=== PATIENT | female | born 1980 | race Caucasian/White ===

== ENCOUNTER → 2016-09-11 | Outpatient (CLI) | payer OTHER ==
--- NOTE | 2016-09-11 08:38 | Diagnostic Imaging Report ---
PROCEDURE: US Gallbladder. TECHNIQUE: Multiple real-time grayscale images were obtained over the right upper quadrant in various projections. INDICATION: Right upper quadrant pain. FINDINGS: The visualized portions of the pancreas appear unremarkable. The liver is fairly homogeneous with a focal simple cyst in the posterior/superior aspect of the right hepatic lobe measuring 1.8 x 1.7 x 0.8 cm. No solid mass. Hepatopetal flow in the portal vein is seen. The gallbladder demonstrates no stones or wall thickening. The CBD is 4 mm in caliber. The right kidney is 11.2 cm in length. No hydronephrosis. No fluid collection in the upper right abdomen. The sonographic Nicole sign is reportedly negative. IMPRESSION: No significant abnormality. Dictated by: Dictated on workstation # [id number]
== END ==
LOC: RAD 08:04
PROVIDERS: ATTEND Surgery
DX: R10.11 Right upper quadrant pain (principal)
CPT/HCPCS: 76705

== ENCOUNTER → 2016-09-19 | Outpatient (CLI) | payer OTHER ==
[~2016-09-19] MED LIST: CATHETER FLUSH 10 ML SYR IV PRN
--- NOTE | 2016-09-19 14:36 | Diagnostic Imaging Report ---
EXAMINATION: HIDA with EF measurements Indication: Abdominal pain TECHNIQUE: After the intravenous administration of 5.1 mCi of Tc 99m Choletec, imaging over the abdomen was obtained. This was followed by administration of Ensure orally to stimulate intrinsic CCK secretion, followed by continued imaging with ejection fraction measured. FINDINGS: There is homogeneous uptake in the liver with prompt bile duct and gallbladder filling seen. Bowel activity is seen at 70 minutes. Based on further imaging and gallbladder area of interest activity measurements after the administration of Ensure, the gallbladder ejection fraction is estimated at 3%. IMPRESSION: 1. Normal hepatobiliary uptake and Gallbladder filling. 2. Biliary dyskinesia. Very poor gallbladder ejection fraction. Dictated by: Dictated on workstation # [id number]
== END ==
LOC: EDUNIT# 09-05 13:41 → CARD 11:58
PROVIDERS: ATTEND Surgery
DX: K82.8 Other specified diseases of gallbladder (principal)
CPT/HCPCS: 78227

== ENCOUNTER 2016-09-25 13:30 | Outpatient (CLI) | payer OTHER ==
[~2016-09-25] VITALS: Ht 160 cm; Wt 91.2 kg
[2016-09-25] MEDS ORDERED: OMEP20TA33 PO (13:39)
[2016-09-25] MEDS ORDERED: OMG1KC PO (13:39)
[2016-09-25] MEDS ORDERED: MULT1CAP27 PO (13:39)
[2016-09-25 13:43] VITALS: BP 125/78
[2016-09-25 14:02] LABS: BASOPHILS % (AUTO) 0 % (0-10); EOSINOPHILS # (AUTO) 0.1 10^3/uL (0.0-0.3); EOSINOPHILS % (AUTO) 1 % (0-10); LYMPHOCYTES # (AUTO) 2.5 X 10^3 (1.0-4.0); LYMPHOCYTES % (AUTO) 26 % (12-44); MEAN CORPUSCULAR HEMOGLOBIN 27 PG (25-34); MEAN CORPUSCULAR HGB CONC 34 G/DL (32-36); MEAN CORPUSCULAR VOLUME 82 FL (80-99); MEAN PLATELET VOLUME 10.6 FL (7.4-10.4); MONOCYTES # (AUTO) 0.5 X 10^3 (0.0-1.0); MONOCYTES % (AUTO) 6 % (0-12); NEUTROPHILS # (AUTO) 6.3 X 10^3 (1.8-7.8); NEUTROPHILS % (AUTO) 67 % (42-75); PLATELET COUNT 246 10^3/uL (130-400); RED BLOOD COUNT 4.74 10^6/uL (4.35-5.85); RED CELL DISTRIBUTION WIDTH 13.1 % (10.0-14.5); WHITE BLOOD COUNT 9.4 10^3/uL (4.3-11.0)
== END 2016-09-25 14:14 | disposition home or self-care (01) ==
LOC: PREOP 13:30
PROVIDERS: ATTEND Surgery
DX: Z01.812 Encounter for preprocedural laboratory examination (principal); Z11.2 Encounter for screening for other bacterial diseases; K82.8 Other specified diseases of gallbladder
CPT/HCPCS: 36415; 84703; 85025; 87081

== ENCOUNTER 2016-09-27 07:39 | Day surgery (SDC) | payer OTHER ==
[~2016-09-27] VITALS: Ht 160 cm; Wt 91.2 kg
[~2016-09-27 07:39] MED LIST changes: -CATHETER FLUSH 10 ML SYR IV PRN; +MULT1CAP27 PO; +OMEP20TA33 PO; +OMG1KC PO
[2016-09-27] MEDS ORDERED: ATRACURIUM 50 MG/5 ML (TRACRIUM) IV ONE (08:04)
[2016-09-27] MEDS ORDERED: DEXAMETHASONE PF 10 MG/ML (DECADRON) VIAL ONE ×2 (08:06→08:07)
[2016-09-27] MEDS ORDERED: LIDOCAINE PF 2% 5 ML (XYLOCAINE) VIAL ONE (08:07)
[2016-09-27] MEDS ORDERED: HURRICAINE EXT TUBE (BENZOCAINE) ONE (08:07)
[2016-09-27] MEDS ORDERED: LACTATED RINGERS 1,000 ML IV ONE (08:07)
[2016-09-27] MEDS ORDERED: SEVOFLURANE (ULTANE) 15 ML INHAL SOLN ONE ×4 (08:07→10:10)
[2016-09-27] MEDS ORDERED: proPOfol 200 MG/20 ML (DIPRIVAN) VIAL IV ONE (08:07)
[2016-09-27] MEDS ORDERED: fentaNYL INJECTION 100 MCG/2 ML AMP ONE (08:08)
[2016-09-27] MEDS ORDERED: MIDAZOLAM 2 MG/2 ML (VERSED) VIAL ONE (08:08)
[2016-09-27] MEDS ORDERED: ceFAZolin 2 GM/NS 50 ML IV ONE (08:15)
[2016-09-27 08:30] VITALS: BP 111/72
[2016-09-27] MEDS: LACTATED RINGERS 1,000 ML IV PRN ×2 (08:30→10:44)
--- NOTE | 2016-09-27 09:10 | Progress Note-Pre Operative ---
Pre-Operative Progress Note H&P Reviewed The H&P was reviewed, patient examined and no changes noted. Time Seen by Provider: 09:01 Date H&P Reviewed: Sep 27, 2016 Time H&P Reviewed: 09:01 Pre-Operative Diagnosis: Biliary Dyskinesia JODIE MULLINS DO Sep 27, 2016 09:10
[2016-09-27] MEDS ORDERED: BUP/EPI 0.5% 1:200,000 (SENSORCAINE) 30 ML VIAL ONE (09:14)
[2016-09-27] MEDS ORDERED: ESMOLOL 100 MG/10 ML (BREVIBLOC) VIAL ONE (09:24)
--- NOTE | 2016-09-27 10:08 | Progress Note-Post Operative ---
Post-Operative Progess Note Surgeon (s)/Supervisor Show Operations (s) Surgeon JODIE MULLINS DO Supervisor Show Operations: Brie Pre-Operative Diagnosis Biliary Dyskinesia Post-Operative Diagnosis Same Procedure & Operative Findings Date of Procedure 09/27/16 Procedure Performed/Findings Lap Tess with IOC Anesthesia Type GET Estimated Blood Loss Estimated blood loss (mL): scant Specimens/Packing Specimens Removed GB and contents Liver bx Packing: none JODIE MULLINS DO Sep 27, 2016 10:08
[2016-09-27] MEDS ORDERED: HYDR-3820 PO (10:09)
[2016-09-27] MEDS ORDERED: NEOSTIGMINE (BLOXIVERZ ) 1 MG/1ML 10 ML VIAL ONE (10:11)
[2016-09-27] MEDS ORDERED: GLYCOPYRROLATE 0.2 MG/ML (ROBINUL) 2 ML VIAL ONE (10:11)
--- NOTE | 2016-09-27 10:11 | Discharge Inst-Surgical ---
Discharge Inst-Surgical Depart Medication/Instructions New, Converted or Re-Newed RX: RX Given to Pt/Family Patient Instructions Follow up Appt: Make appointment for 1 week, . Instructions: No lifting greater than 10 pounds. No strenuous activity. May shower in 24 hours, no tub bath or soaking. Use incentive spirometer at home as directed. No Smoking Skin/Wound Care: May remove band-aids in am 6/17. Dermabond will fall off on its own. Symptoms to Report: Appetite Changes, Extremity Discoloration, Numbness/Tingling, Swelling Increased , Bleeding Excessive, Eyesight Changes, Pain Increased, Urine Color Change, Constipation(Persistent), Fever over 101 degree F, Pain/Pressure in chest, Urinating Difficulty, Cough Up/Vomit Blood, Heart Beat Irreg/Pounding, Pain/ Pressure in jaw, Vaginal Bleeding Increase, Cramps in feet or legs, Lightheadedness, Pain/Pressure in shoulder, Diarrhea(Persistent), Memory Changes Suddenly, Questions/Concerns, Weight gain consecutive days, Dizziness/ Fainting, Nausea/Vomiting, Shortness of Breath, Weight gain over 2 pounds. If eyes or skin turn yellow notify physician. If questions or concerns contact your physician Or seek help at emergency department. Activity Activity as Tolerated: Yes Activity Instructions: Avoid Stress to Incision Driving Instructions: No Driving/Refer to Dr. Ordaz Discharge Diet: Avoid Fatty Foods, Low Fat/Low Cholesterol Diet After 24 Hours: Clear Liquid if Nauseous If Any Problems/Questions/Issu: Contact Your Physician, Go to Emergency Room Skin/Wound Care Infection Signs and Symptoms: Increased Redness, Foul Odor of Wound, Increased Drainage, Skin Itchy or Has a Rash, Increased Swelling, Temperature Above 101 F Wound Care Comment: Heating pad to shoulder or neck tonight for pain. Bathing Instructions: Shower Stitches/Chloe/Dermabond Dis: Dermabond Ice Pack: Ice On and Off Site (as needed) JODIE MULLINS DO Sep 27, 2016 10:11
[2016-09-27] MEDS: fentaNYL INJECTION 100 MCG/2 ML AMP IVP PRN ×3 (10:43→11:53)
--- NOTE | 2016-09-27 10:51 | Diagnostic Imaging Report ---
EXAMINATION: Fluoroscopy. INDICATION: Abdominal pain. Fluoroscopic assistance was provided for Dr. Carver during this laparoscopic cholecystectomy procedure. One minute, 5 seconds of fluoroscopy time was utilized. FINDINGS: A single spot film of the abdomen was obtained. There are laparoscopic devices in place. The cine images also reveal that there has been opacification of the common bile duct via a cystic duct catheter. The common bile duct is slightly dilated but there is no evidence for a retained calculus. Contrast is seen extending into the small bowel and into the proximal portion of the main pancreatic duct. IMPRESSION: The common bile duct is slightly dilated but there is no evidence for a retained calculus. Dictated by: Dictated on workstation # [id number]
[2016-09-27 11:15] VITALS: BP 147/84
[2016-09-27] MEDS ORDERED: HYDROcodone/APAP 10 MG/325 MG (LORTAB) TAB PO ONE (11:40)
[2016-09-27] MEDS ORDERED: ONDANSETRON 4 MG/2 ML (SDV) Z0FRAN ONE (11:42)
[2016-09-27 11:45] VITALS: BP 133/84
[2016-09-27] MEDS ORDERED: fentaNYL INJECTION 100 MCG/2 ML AMP IVP ONE (12:00)
[2016-09-27] MEDS ORDERED: ONDANSETRON 4 MG/2 ML (SDV) Z0FRAN IVP ONE (12:00)
[2016-09-27 12:15] VITALS: BP 131/82
--- NOTE | 2016-09-27 12:59 | OPERATIVE REPORT ---
DATE OF SERVICE: 09/27/2016 PREOPERATIVE DIAGNOSIS: Biliary dyskinesia. POSTOPERATIVE DIAGNOSIS: Biliary dyskinesia. PROCEDURE: Laparoscopic cholecystectomy with intraoperative cholangiogram. SURGEON: Hansel Carver DO SCREEN MAKING TECHNICIAN: Dr. Baird. ANESTHESIA: General endotracheal tube. SPECIMEN: 1. Gallbladder and contents. 2. Specimen from liver. BLOOD LOSS: Scant. FLUIDS: Per anesthesia. POSTOPERATIVE CONDITION: Stable. INDICATION FOR PROCEDURE: The patient is a 36-year-old female who has been having some abdominal pain, was associated with fried fatty foods but then became all foods. An ultrasound showed no stones but she had a HIDA scan performed which showed ejection fraction of 3%. This is a biliary dyskinesia. FINDINGS: The patient actually had some adhesion to the gallbladder. This is usually indicated of previous gallbladder attacks and she had an odd looking bed of liver so a small portion was taken off and sent to pathology. PROCEDURE IN DETAIL: After informed consent was obtained, the patient was brought to the operating room and placed on the table in supine position. She was sterilely prepped and draped in normal fashion. Local lidocaine was used to infiltrate the skin above the umbilicus. I then made an incision with a #11 blade and carried down through the skin into the subcutaneous tissue, then debrided down to the subcutaneous tissue with Bovie electrocautery down to the fascia. The fascia was incised with Bovie electrocautery. I then bluntly entered the abdomen, swept the finger around, placed an 0 Vicryl doxiim-wa-jdxzf suture and then placed an 11 mm trocar port under direct visualization. I created a pneumoperitoneum and then placed two more ports in a normal fascia using local lidocaine, an 11 blade for a stab incision and the VersaStep system, all done under direct visualization, one in the subxiphoid and two in the right upper quadrant. The patient was then placed reverse Trendelenburg and rotated to the left. I was able to grasp gallbladder and fundus and taken in inferior direction, there were adhesions in the gallbladder. This is usually indicative of previous gallbladder attacks. These were carefully taken down with Bovie electrocautery as well as blunt dissection. Then, I was able to grasp down to Stevenson's pouch and pull in the inferolateral direction and started dissecting out the cystic duct and cystic artery. I was able to get around the cystic duct and cystic artery. I placed 1 clip distally in the cystic duct and 1 distally and one proximally in the cystic artery. I cut the cystic duct chcf through with Metzenbaum scissors and placed a cholangiogram catheter and shot a cholangiogram. I had a very tough time getting the dye to go up into the common duct. It went easily down the cystic duct into the common bile duct and down the small intestine and next started also delineating the pancreatic duct, but I had to place the patient a little bit Trendelenburg to get it to go up the common hepatic duct. It did start going up the common hepatic duct. At this point I removed cholangiogram catheter and placed 2 clips proximally on the cystic duct and then cut the cystic duct and cystic artery with Metzenbaum scissors, and then started removing the gallbladder from the bed of the liver with the L hook cautery. Once it was completely removed, it appeared to be almost rough edges. It was not a flat, normal appearing liver bed, so removed one of these pieces and sent it to pathology. There was bleeding in the bed of liver that was contained with Bovie electrocautery and then placed a bag in the abdomen, placed the gallbladder in the bag and then removed this through a supraumbilical port. Copiously irrigated with normal saline and suctioned this out and then removed all ports under direct visualization, allowed pneumoperitoneum to escape as well as suctioned it out. I then closed the supraumbilical incision, closed the fascia with the 0 Vicryl suture previously placed. We copiously irrigated all incisions with normal saline and then closed the 3 small 5 mm incisions with single interrupted 4-0 undyed Monocryl subcuticular stitches. The supraumbilical incision was closed with 3 interrupted 4-0 undyed Monocryl subcuticular stitches. The other areas were cleaned and dried and Dermabond was placed. The patient was then transferred to recovery room in stable condition. Sponge, instrument and needle counts were correct at the end of the case. Dr. Baird assisted in this case by making incisions and introducing trocars, holding the gallbladder, identifying anatomy and then closing the incisions. Job ID: [id number] DocumentID: [id number] Dictated Date: 09/27/2016 10:15:14 Yarn Salvager Date: 09/27/2016 12:10:24 Dictated By: DO SAMANTHA WOODS
[2016-09-27 14:20] VITALS: BP 131/82
[2016-09-27 14:35] VITALS: BP 131/82
== END 2016-09-27 14:35 | disposition home or self-care (01) ==
LOC: SDC 07:39
PROVIDERS: ATTEND Surgery
DX: K81.1 Chronic cholecystitis (principal); K76.9 Liver disease, unspecified; K21.9 Gastro-esophageal reflux disease without esophagitis
CPT/HCPCS: 94664

== ENCOUNTER 2017-03-28 09:11 | Outpatient (CLI) | payer OTHER ==
[~2017-03-28] VITALS: Ht 160 cm; Wt 92.3 kg
[~2017-03-28 09:11] MED LIST changes: +HYDR-3820 PO
[2017-03-28] MEDS ORDERED: BCP PO (09:20)
[2017-03-28] MEDS ORDERED: METH-287 PO (09:20)
[2017-03-28 09:23] VITALS: BP 132/74
[2017-03-28 09:49] LABS: BASOPHILS % (AUTO) 0 % (0-10); EOSINOPHILS # (AUTO) 0.1 10^3/uL (0.0-0.3); EOSINOPHILS % (AUTO) 1 % (0-10); LYMPHOCYTES # (AUTO) 2.4 X 10^3 (1.0-4.0); LYMPHOCYTES % (AUTO) 23 % (12-44); MEAN CORPUSCULAR HEMOGLOBIN 27 PG (25-34); MEAN CORPUSCULAR HGB CONC 33 G/DL (32-36); MEAN CORPUSCULAR VOLUME 81 FL (80-99); MONOCYTES # (AUTO) 0.6 X 10^3 (0.0-1.0); MONOCYTES % (AUTO) 6 % (0-12); NEUTROPHILS # (AUTO) 7.2 X 10^3 (1.8-7.8); NEUTROPHILS % (AUTO) 70 % (42-75); PLATELET COUNT 299 10^3/uL (130-400); RED BLOOD COUNT 4.79 10^6/uL (4.35-5.85); RED CELL DISTRIBUTION WIDTH 13.2 % (10.0-14.5); WHITE BLOOD COUNT 10.3 10^3/uL (4.3-11.0)
== END 2017-03-28 12:00 | disposition home or self-care (01) ==
LOC: PREOP 09:11
PROVIDERS: ATTEND Obstetrics & Gynecology
DX: Z01.812 Encounter for preprocedural laboratory examination (principal); Z11.2 Encounter for screening for other bacterial diseases; R10.2 Pelvic and perineal pain; N93.8 Other specified abnormal uterine and vaginal bleeding; N80.0 Endometriosis of uterus; D64.9 Anemia, unspecified
CPT/HCPCS: 36415; 85025; 86850; 86900; 86901; 87081

== ENCOUNTER 2017-04-04 08:25 | Day surgery (SDC) | payer OTHER ==
[~2017-04-04] VITALS: Ht 160 cm; Wt 92.3 kg
[~2017-04-04 08:25] MED LIST changes: +BCP PO; +METH-287 PO
[2017-04-04 08:35] VITALS: BP 106/78
[2017-04-04] MEDS: LACTATED RINGERS 1,000 ML IV PRN ×2 (08:55→11:15)
[2017-04-04] MEDS ORDERED: ceFAZolin 1,000 MG (ANCEF) VIAL ONE (09:16)
[2017-04-04] MEDS ORDERED: NS (IVPB) 50 ML ONE (09:17)
[2017-04-04] MEDS ORDERED: BUP/EPI 0.5% 1:200,000 (MARCAINE) 10ML VIAL IJ ONE (09:23)
[2017-04-04] MEDS ORDERED: ceFAZolin 2 GM/50 ML NS 50 ML IV ONE (09:30)
[2017-04-04] MEDS ORDERED: ceFAZolin INJECTION 1,000 MG in NS (IVPB) 50 ML IV ONE (09:30)
[2017-04-04] MEDS ORDERED: CATHETER FLUSH 10 ML SYR IV PRN (09:30)
[2017-04-04] MEDS ORDERED: ONDANSETRON 4 MG/2 ML (SDV) Z0FRAN ONE (10:10)
[2017-04-04] MEDS ORDERED: ROCURONIUM 50 MG/5 ML (ZEMURON) VIAL IV ONE (10:10)
[2017-04-04] MEDS ORDERED: proPOfol 200 MG/20 ML (DIPRIVAN) VIAL IV ONE (10:10)
[2017-04-04] MEDS ORDERED: DEXAMETHASONE 10 MG/ML (DECADRON) 1 ML VIAL ONE (10:10)
[2017-04-04] MEDS ORDERED: KETOROLAC 30 MG/ML VIAL ONE (10:10)
[2017-04-04] MEDS ORDERED: LACTATED RINGERS 0 ML IV ONE (10:10)
[2017-04-04] MEDS ORDERED: SEVOFLURANE (ULTANE) 15 ML INHAL SOLN ONE ×3 (10:10→11:45)
[2017-04-04] MEDS ORDERED: fentaNYL INJECTION 100 MCG/2 ML AMP ONE ×2 (10:10→11:09)
[2017-04-04] MEDS ORDERED: LIDOCAINE PF 2% 5 ML (XYLOCAINE) VIAL ONE (10:10)
[2017-04-04] MEDS ORDERED: MIDAZOLAM 2 MG/2 ML (VERSED) VIAL ONE (10:11)
--- NOTE | 2017-04-04 10:24 | Progress Note-Post Operative ---
Post-Operative Progess Note Surgeon (s)/Welfare Adviser (s) Surgeon GEORGINA HEATH MD Welfare Adviser: Vane Contreras Pre-Operative Diagnosis mmenorrhagia/chronic pelvic pain/oovarian cystic mass Post-Operative Diagnosis ssame with pathology pending Procedure & Operative Findings Date of Procedure 04/04/17 Procedure Performed/Findings total laparoscopic hysterectomy with bilateral salpingo-oophorectomy Anesthesia Type GETA Estimated Blood Loss Estimated blood loss (mL): mminimal Specimens/Packing Specimens Removed uterus tubes and ovaries Packing: none GEORGINA HEATH MD Apr 04, 2017 10:24
--- NOTE | 2017-04-04 10:24 | Progress Note-Pre Operative ---
Pre-Operative Progress Note H&P Reviewed The H&P was reviewed, patient examined and no changes noted. Date Seen by Provider: Apr 04, 2017 Time Seen by Provider: 10: Date H&P Reviewed: Apr 04, 2017 Time H&P Reviewed: : Pre-Operative Diagnosis: mmenorrhagia/chronic pelvic pain/oovarian cystic mass GEORGINA HEATH MD Apr 04, 2017 10:24 am
[2017-04-04] MEDS ORDERED: ONDANSETRON 4 MG/2 ML (SDV) Z0FRAN IVP PRN ×2 (10:30→12:15)
[2017-04-04] MEDS ORDERED: OXYC-465 PO (10:30)
[2017-04-04] MEDS ORDERED: DOCU-143 PO (10:30)
[2017-04-04] MEDS ORDERED: MEPERIDINE (DEMEROL) INJ 100 MG/ML IM/IV PRN (10:30)
[2017-04-04] MEDS ORDERED: PATIENT MAY USE OWN MEDS, ALL MC SCH (10:30)
[2017-04-04] MEDS ORDERED: PROMETHAZINE INJ 25 MG/ML (PHENERGAN) AMP IM PRN (10:30)
[2017-04-04] MEDS ORDERED: WATER (STERILE) FOR INJ 10 ML BTL INJ ONE (10:30)
[2017-04-04] MEDS ORDERED: ESTROGENS CONJ IV 25 MG/5 ML (PREMARIN) VIAL IVP ONE (10:30)
--- NOTE | 2017-04-04 10:31 | Discharge Instructions ---
Discharge Instructions Discharge Medications New, Converted or Re-Newed RX: RX on Chart Patient Instructions Patient Instructions: aas directed Return to The Hospital For: aas directed Activity & Diet Discharge Diet: No Restrictions Activity as Tolerated: No Orders-Post D/C & Referrals Follow Up Appt: return to clinic on Saturday, April 08, 2017 at 930 a.m. for staple removal Call to make follow up appt. for patient in 4 weeks. Activity: Rest for 24 hours, than as tolerated. Wound Care: May remove Band-Aid tomorrow. Replace as desired. Keep incisions clean and dry. Wash daily with soap and water. Please call in RX to patient pharmacy. Diet: As tolerated-Clear Liquids only if nauseated. May shower or tub bathe as desired. No driving for 24 hours, no alcoholic beverages for 24 hours, and nothing per vagina (no tampons, douching, or intercourse) for 2 weeks. Patient to return to the clinic as soon as possible for: Temperature greater than 101F, Severe Pain, Foul discharge from incision or vagina, Excessive Bleeding (more than a period). GEORGINA HEATH MD Apr 04, 2017 10:31 am
[2017-04-04] MEDS ORDERED: NEOSTIGMINE (BLOXIVERZ ) 1 MG/1ML 10 ML VIAL ONE (11:44)
[2017-04-04] MEDS ORDERED: GLYCOPYRROLATE 0.2 MG/ML (ROBINUL) 2 ML VIAL ONE (11:44)
[2017-04-04] MEDS ORDERED: HYDROmorphone (DILAUDID) 2 MG/ML VIAL ONE (11:50)
[2017-04-04] MEDS ORDERED: MEPERIDINE (DEMEROL) INJ 50 MG/ML IVP PRN (12:15)
[2017-04-04] MEDS ORDERED: fentaNYL INJECTION 100 MCG/2 ML AMP IVP PRN (12:15)
[2017-04-04] MEDS ORDERED: PROMETHAZINE INJ 25 MG/ML (PHENERGAN) AMP IVP PRN (12:15)
[2017-04-04] MEDS: HYDROmorphone (DILAUDID) 2 MG/ML VIAL IVP PRN ×2 (12:25→12:36)
[2017-04-04] MEDS: D5 LR IV SOLUTION 1,000 ML IV SCH ×2 (15:20→23:20)
[2017-04-04 21:30] VITALS: BP 111/69
[2017-04-04] MEDS: oxyCODONE/APAP 10/325MG (PERCOCET 10) TABLET PO PRN (21:33)
--- NOTE | 2017-04-04 22:27 | OPERATIVE REPORT ---
DATE OF SERVICE: 04/04/2017 PREOPERATIVE DIAGNOSES: Dysfunctional uterine bleeding, menorrhagia, chronic pelvic pain and a complex appearing right ovarian mass. POSTOPERATIVE DIAGNOSES: Dysfunctional uterine bleeding, menorrhagia, chronic pelvic pain and a complex appearing right ovarian mass. OPERATIVE PROCEDURE: Total laparoscopic hysterectomy with bilateral salpingectomy. OPERATIVE DESCRIPTION: With the patient in the supine position under satisfactory general anesthesia, she was repositioned in dorsal lithotomy position in the [facility] and prepped and draped in the usual fashion for abdominal and vaginal surgery. The urinary bladder was drained via Love catheter. Weighted speculum placed in the posterior fornix of the vagina, cervix exposed and grasped anteriorly with single-tooth tenaculum. The uterus was sounded to 9 cm. This was done with some difficulty as the uterus was very sharply retroverted and retroflexed. The uterine manipulator was placed after dilating the cervix to accommodate the Emily II manipulator using a 6 x 8 cm uterine probe and a 30 mm colpotomy ring. The instrument placed easily. The patient was brought in low dorsal lithotomy position. A 12 mm incision was made just superior to the umbilicus at the site of the patient's previous supraumbilical cholecystectomy scar. The abdomen was insufflated with 2.4 liters of carbon dioxide after properly placing a Veress needle. The Veress needle was removed and a 12 mm laparoscopic port placed under direct vision. The patient was placed in Trendelenburg allowing the bowel to spill out of the pelvis and lateral ports of 8 mm were placed 9 cm on each side of the umbilicus at the level of the umbilicus. All incision sites have been infiltrated with 0.25% Marcaine with epinephrine. On examination, the uterine manipulator had perforated through the anterior lower uterine segment well above the internal cervical os, but the balloon was obvious outside the uterus. There was very little bleeding associated with this and the uterus was still manipulable to allow for the intended procedure. The pelvis was examined and there was some endometriosis on both ovaries and on the uterus and the cul-de-sac. The right and left ureters were identified and seemed to peristalse. Laparoscope was rotated. The appendix was identified, it was a normal vermiform appendix. Laparoscope was brought back to the pelvis. A fourth port was placed in the right upper quadrant to allow for a manual manipulator to elevate the fundus of the uterus as manipulation was somewhat impaired by the perforated uterus. The right fallopian tube and ovary were grasped and elevated. Using the vessel sealer, the mesovarium was clamped, cauterized and divided across to the round ligament, which was also clamped, cauterized and divided and then across the broad ligament down the side of the uterus to the cardinal ligament treating all that tissue in the same manner allowing for removal of the tube and ovaries eventually with the uterus. The same procedure was performed on the left with the same result. The anterior lower uterine segment peritoneum was then exposed and incised with monopolar shear allowing the bladder to be dissected down off the lower uterine segment and off of the proximal vaginal wall. Colpotomy incision made at the 12 o'clock position and that incision was continued circumferentially until the entire colpotomy ring was exposed allowing the uterus with the tubes and ovaries still attached to be extracted through the vagina. Hemostasis was quite satisfactory. The procedure went well in spite of the perforated uterus. It did not complicate the procedure and there was still minimal bleeding. With the uterus removed, the vaginal cuff was closed with 2 sutures of V-Loc yumiko sutures starting first on the right angle and continued to the midportion and then from the left angle to the midportion of the cuff, taking care to ensure inclusion of the uterine vessel pedicles on each side. The ureters were seemed to be well away from the dissection and from the closure. With the vaginal cuff closed, hemostasis complete, no abnormal pathology remaining, the procedure was terminated. The operative instruments were removed under direct vision as were the ports. The abdomen was evacuated and insufflating gas in the process of removing the ports. The patient was brought out of Trendelenburg. The skin incisions were closed with joslyn. The fascia at the supraumbilical incision was closed with rssocr-vw-brjwz suture of 2-0 Vicryl. Speculum was replaced in the vagina. The vaginal cuff was found to be completely intact and hemostatic. With sponge and needle counts correct, hemostasis assured, estimated blood loss minimal, the procedure was complete and terminated. The patient was uneventfully awakened from her general anesthesia and transferred to recovery room in stable condition with plans for routine convalescent care. Job ID: [id number] DocumentID: [id number] Dictated Date: 04/04/2017 11:51:13 Sales Service Rep Date: 04/04/2017 19:28:48 Dictated By: GEORGINA HEATH MD
[2017-04-04 23:20] VITALS: BP 104/66
[2017-04-05 05:45] VITALS: BP 111/62
[2017-04-05] MEDS: oxyCODONE/APAP 10/325MG (PERCOCET 10) TABLET PO PRN ×2 (06:32→10:40)
[2017-04-05 08:33] VITALS: BP 123/69
[2017-04-05] MEDS ORDERED: DOCUSATE SODIUM 100 MG (COLACE) CAP PO SCH (09:00)
--- NOTE | 2017-04-05 09:49 | Progress Note-Standard ---
Standard Progress Note Progress Notes/Assess & Plan Date Seen by Provider: Apr 05, 2017 Time Seen by Provider: 09:48 Progress/Assessment & Plan this patient is without complaint. She is ambulating, voiding, tolerating oral intake well, has good pain control and is requesting discharge home.she denies chest pain, denies shortness of breath, denies nausea vomiting, denies headache. Vital Signs Date Time Temp Pulse Resp B/P (MAP) Pulse Ox O2 Delivery O2 Flow Rate FiO2 04/05/17 08:33 98.0 63 18 123/69 (87) 99 Room Air 04/05/17 05:45 98.0 73 16 111/62 (78) 99 Room Air 04/04/17 23:20 97.3 76 18 104/66 (79) 100 Room Air 04/04/17 21:30 97.5 70 16 111/69 (83) 99 Room Air 04/04/17 10:44 98.0 I & O 04/05/17 07:00 Intake Total 3790 ml Output Total 1725 ml Balance 2065 ml vital signs are stable. Patient is afebrile. The abdomen is benign. Extremities show clubbing or cyanosis. There is no Homans sign. Assessment and plan postoperative day number 1 status post surgery doing well plan is for discharge home with follow-up in clinic Final Diagnosis DUB/chronic pelvic pain/menorrhagia GEORGINA HEATH MD Apr 05, 2017 9:49 am
== END 2017-04-05 10:50 | disposition home or self-care (01) ==
LOC: SDC 08:25 → WS 13:15 → SDC 04-05 10:50
PROVIDERS: ATTEND Obstetrics & Gynecology
DX: N93.8 Other specified abnormal uterine and vaginal bleeding (principal); N92.0 Excessive and frequent menstruation with regular cycle; N80.1 Endometriosis of ovary; N80.0 Endometriosis of uterus; N80.3 Endometriosis of pelvic peritoneum; R10.2 Pelvic and perineal pain; N72 Inflammatory disease of cervix uteri; N88.8 Other specified noninflammatory disorders of cervix uteri; N83.8 Other noninflammatory disorders of ovary, fallopian tube and broad ligament
CPT/HCPCS: 84703; 94664

== ENCOUNTER → 2017-04-16 | Outpatient (CLI) | payer OTHER ==
[~2017-04-16] MED LIST changes: +DOCU-143 PO; +OXYC-465 PO
[2017-04-16 17:01] LABS: HEMOGLOBIN 12.8 G/DL (11.5-16.0); MEAN PLATELET VOLUME 10.2 FL (7.4-10.4); RED BLOOD COUNT 4.8 10^6/uL (4.35-5.85); RED CELL DISTRIBUTION WIDTH 13.8 % (10.0-14.5); WHITE BLOOD COUNT 11.9 10^3/uL (4.3-11.0)
[2017-04-16 17:23] LABS: ALANINE AMINOTRANSFERASE 15 U/L (0-55); ALKALINE PHOSPHATASE 56 U/L (40-136); BILIRUBIN,TOTAL 0.4 MG/DL (0.1-1.0); BUN/CREATININE RATIO 20; CALCIUM 9.3 MG/DL (8.5-10.1); CARBON DIOXIDE 19 MMOL/L (21-32); CHLORIDE 108 MMOL/L (98-107); CREATININE SERUM 0.65 MG/DL (0.60-1.30); GFR ESTIMATED > 60; GLUCOSE 95 MG/DL (70-105); SODIUM 139 MMOL/L (135-145); TOTAL PROTEIN 7.4 GM/DL (6.4-8.2)
[2017-04-16 17:29] LABS: CREATINE KINASE MB 0.6 NG/ML (<6.6)
== END ==
LOC: LAB 16:27
PROVIDERS: ATTEND Nurse Practitioner Family
DX: R07.9 Chest pain, unspecified (principal); R51 Headache; R53.83 Other fatigue
CPT/HCPCS: 36415; 80053; 82553; 84484; 85027

== ENCOUNTER → 2017-05-14 | Outpatient (CLI) | payer OTHER | LOC: CARD 12:53 | PROVIDERS: ATTEND Internal Medicine Cardiovascular Disease | DX: R07.89 Other chest pain (principal); R10.11 Right upper quadrant pain; R51 Headache; E28.2 Polycystic ovarian syndrome | CPT/HCPCS: 93017; 93306 ==

== ENCOUNTER → 2017-06-04 | Outpatient (CLI) | payer OTHER ==
[~2017-06-04] MED LIST changes: +IOHEXOL 350 MG/ML 100 ML (OMNIPAQUE 350) VIAL IV ONE; +NS 250 ML (IVPB) BAG IV ONE
--- NOTE | 2017-06-04 09:15 | Diagnostic Imaging Report ---
PROCEDURE: CT abdomen with and without contrast. TECHNIQUE: Multiple contiguous axial CT images of the abdomen were obtained prior to and after intravenous administration of iodinated contrast. INDICATION: Abdominal pain. FINDINGS: There is no focal hepatic or splenic abnormality. Gallbladder is surgically absent. Extrahepatic bile ducts are prominent, however, no calcific filling defect is seen. Adrenal glands and kidneys are unremarkable. There is no free fluid in the abdomen. No pathologic adenopathy is detected. The appendix is incompletely visualized without evidence of inflammation. IMPRESSION: Extrahepatic biliary ductal dilatation may be related to previous cholecystectomy. Otherwise, no acute abnormality is seen in the abdomen. Dictated by: Dictated on workstation # [id number]
== END ==
LOC: RAD 08:34
PROVIDERS: ATTEND Nurse Practitioner Family
DX: K83.8 Other specified diseases of biliary tract (principal)
CPT/HCPCS: 74170